=== PATIENT | male | born 1955 | race Caucasian/White ===

== ENCOUNTER 2021-01-23 14:00 | Inpatient (IN) | payer MEDICARE, MEDICAID ==
[~2021-01-23] VITALS: Ht 162.6 cm; Wt 68.2 kg
[2021-01-23] MEDS ORDERED: SODIUM CHLORIDE 0.9% 1,000 ML IV ONE (14:45)
[2021-01-23 15:25] LABS: HEMATOCRIT. 37.3 % (42.0-52.0); HEMOGLOBIN. 13.2 g/dL (14.0-18.0); MEAN CORPUSCULAR HEMOGLOBIN 30.6 pg (28.0-32.0); MEAN CORPUSCULAR VOLUME 86.4 fL (80.0-94.0); MEAN PLATELET VOLUME 8.6 fl (7.4-10.4); PLATELET 219 x1000/uL (130-400); RED BLOOD CELL COUNT 4.31 mill/uL (4.7-6.1)
[2021-01-23 15:32] LABS: CHLORIDE 102 mEq/L (98-107)
[2021-01-23 15:35] LABS: ETHANOL BLOOD < 10 mg/dL; PROTHROMBIN TIME 10.7 sec (9.6-11.0)
[2021-01-23 15:48] LABS: PLATELET ESTIMATE NORMAL
[2021-01-23] MEDS ORDERED: AZITHROMYCIN 500 MG in DEXT 5% WATER 250 ML IV SCH (17:00)
[2021-01-23 17:13] LABS: CLARITY URINE CLEAR (CLEAR); COLOR URINE DARK YELLOW (YELLOW); KETONES URINE TRACE (NEGATIVE); LEUKOCYTE ESTERASE URINE TRACE (NEGATIVE); NITRITE URINE NEGATIVE (NEGATIVE); OCCULT BLOOD URINE NEGATIVE (NEGATIVE); PROTEIN URINE TRACE (NEGATIVE); SPECIFIC GRAVITY URINE 1.022 (1.005-1.030)
[2021-01-23] MEDS ORDERED: CEFTRIAXONE 1 G PREMIX 50 ML IV ONE (17:15)
[2021-01-23 17:22] LABS: *AMPHETAMINES SCREEN URINE NEGATIVE (NEGATIVE); *BARBITURATES SCREEN URINE NEGATIVE (NEGATIVE); *BENZODIAZEPINES SCREEN URINE NEGATIVE (NEGATIVE); *COCAINE SCREEN URINE NEGATIVE (NEGATIVE)
[2021-01-23 17:23] LABS: CANNABINOID URINE SCREEN NEGATIVE (NEGATIVE); METHADONE URINE SCREEN NEGATIVE (NEGATIVE); OPIATES URINE SCREEN NEGATIVE (NEGATIVE); PHENCYCLIDINE URINE SCREEN NEGATIVE (NEGATIVE)
[2021-01-23] MEDS ORDERED: NITROGLYCERIN 0.4MG TABLET SL SL PRN (20:00)
[2021-01-23] MEDS ORDERED: ZOLPIDEM TARTRATE 5MG TABLET PO PRN (20:00)
[2021-01-23] MEDS ORDERED: GUAIFENESIN 200MG/10ML SUGAR FREE UDC PO PRN (20:00)
[2021-01-23] MEDS ORDERED: KETOROLAC 15MG/ML VIAL IV PRN (20:00)
[2021-01-23] MEDS ORDERED: IPRATROPIUM/ALBUTEROL 0.5-3(2.5)MG/3ML NEB NEB PRN (20:00)
[2021-01-23] MEDS ORDERED: DOCUSATE SODIUM 100MG CAPSULE PO PRN (20:00)
[2021-01-23] MEDS ORDERED: CLONIDINE 0.1MG TABLET PO PRN (20:00)
[2021-01-23] MEDS ORDERED: MAGNESIUM/ALUMINUM HYDROXIDE/SIMETHICONE 30ML UDC PO PRN (20:00)
[2021-01-23] MEDS ORDERED: ONDANSETRON HCL 4MG/2ML INJ IV PRN (20:00)
[2021-01-23 20:41] LABS: FOLIC ACID (FOLATE) SERUM 8.2 ng/mL (>5.38)
[2021-01-23] MEDS: FAMOTIDINE 20MG TABLET PO SCH (21:00)
[2021-01-23] MEDS: ASCORBIC ACID 500 MG TABLET PO SCH (21:00)
[2021-01-23] MEDS: ENOXAPARIN 40MG/0.4ML SYR SUBCUT SCH (21:00)
[2021-01-23 22:58] LABS: CREATINE KINASE MB FRACTION 38.4 ng/mL (0.5-3.6)
[2021-01-23 23:09] LABS: CREATINE KINASE 2401 IU/L (39-308)
[2021-01-24] VITALS: BP_SYST 124; BP_SYST 126; BP_DIAS 61; BP_DIAS 72
[2021-01-24] MEDS ORDERED: GABA-529 PO (01:06)
[2021-01-24] MEDS ORDERED: DONE10TA36 MT (01:06)
[2021-01-24] MEDS ORDERED: LABE200T9 PO (01:06)
[2021-01-24] MEDS ORDERED: HYDR100T26 PO (01:06)
[2021-01-24] MEDS ORDERED: LANS30CA55 PO (01:06)
[2021-01-24] MEDS ORDERED: LOSA50TA41 MT (01:06)
[2021-01-24 04:00] VITALS: BP 134/65
[2021-01-24 07:04] LABS: HEMATOCRIT. 37.1 % (42.0-52.0); MEAN CORPUSCULAR HEMOGLOBIN 30.6 pg (28.0-32.0); MEAN CORPUSCULAR VOLUME 87.5 fL (80.0-94.0); PLATELET 199 x1000/uL (130-400); RED BLOOD CELL COUNT 4.24 mill/uL (4.7-6.1); RED CELL DISTRIBUTION WIDTH 14.3 % (11.6-14.6)
[2021-01-24 07:34] LABS: CHLORIDE 102 mEq/L (98-107)
[2021-01-24 07:46] LABS: PHOSPHORUS 2.8 mg/dL (2.5-4.9)
[2021-01-24 07:56] LABS: CREATINE KINASE MB FRACTION 26.3 ng/mL (0.5-3.6)
[2021-01-24 08:04] LABS: CREATINE KINASE 2665 IU/L (39-308)
[2021-01-24 08:20] VITALS: BP 133/68
[2021-01-24] MEDS: CHOLECALCIFEROL (D3) 1000 UNIT TABLET PO SCH (09:24)
[2021-01-24] MEDS: FAMOTIDINE 20MG TABLET PO SCH ×2 (09:24→20:23)
[2021-01-24] MEDS: CLOPIDOGREL 75MG TABLET PO SCH (09:24)
[2021-01-24] MEDS: ASCORBIC ACID 500 MG TABLET PO SCH ×2 (09:25→20:23)
[2021-01-24] MEDS: ZINC SULFATE 220 MG ( 50 ) CAPSULE PO SCH (09:25)
[2021-01-24] MEDS: ACETAMINOPHEN 325MG TABLET PO PRN ×2 (09:25→17:12)
[2021-01-24 12:00] VITALS: BP 126/64
[2021-01-24 13:21] LABS: PLATELET ESTIMATE NORMAL
[2021-01-24 16:20] VITALS: BP 152/80
[2021-01-24] MEDS: AZITHROMYCIN 500 MG in DEXT 5% WATER 250 ML IV SCH (17:13)
[2021-01-24] MEDS: CEFTRIAXONE 1,000 MG in DEXTROSE 5% WATER 50 ML IV SCH (17:13)
[2021-01-24] MEDS ORDERED: AZITHROMYCIN 500 MG in DEXT 5% WATER 250 ML IV SCH (18:00)
[2021-01-24] MEDS ORDERED: CEFTRIAXONE 1,000 MG in DEXTROSE 5% WATER 50 ML IV SCH (18:00)
[2021-01-24 20:00] VITALS: BP 137/74
[2021-01-24] MEDS: ENOXAPARIN 40MG/0.4ML SYR SUBCUT SCH ×2 (20:25→21:00)
[2021-01-25] VITALS: BP 147/78
[2021-01-25] MEDS: ACETAMINOPHEN 325MG TABLET PO PRN ×2 (00:04→21:08)
[2021-01-25 04:00] VITALS: BP 118/70
[2021-01-25 08:00] VITALS: BP 119/53
[2021-01-25] MEDS: ZINC SULFATE 220 MG ( 50 ) CAPSULE PO SCH (09:17)
[2021-01-25] MEDS: ASCORBIC ACID 500 MG TABLET PO SCH ×2 (09:17→21:08)
[2021-01-25] MEDS: CLOPIDOGREL 75MG TABLET PO SCH (09:17)
[2021-01-25] MEDS: FAMOTIDINE 20MG TABLET PO SCH ×2 (09:17→21:08)
[2021-01-25] MEDS: CHOLECALCIFEROL (D3) 1000 UNIT TABLET PO SCH (09:17)
[2021-01-25] MEDS ORDERED: VANCOMYCIN 1500MG in DEXTROSE 5% WATER 250ML IV SCH (10:00)
[2021-01-25 12:00] VITALS: BP 146/85
[2021-01-25 16:00] VITALS: BP 151/81
[2021-01-25] MEDS: CEFTRIAXONE 1,000 MG in DEXTROSE 5% WATER 50 ML IV SCH (18:35)
[2021-01-25 20:00] VITALS: BP 140/80
[2021-01-25] MEDS: AZITHROMYCIN 500 MG in DEXT 5% WATER 250 ML IV SCH (21:08)
[2021-01-25] MEDS ORDERED: VANCOMYCIN 1250MG in DEXTROSE 5% WATER 250ML IV SCH (22:00)
[2021-01-25] MEDS: ENOXAPARIN 40MG/0.4ML SYR SUBCUT SCH (23:17)
[2021-01-25] MEDS: VANCOMYCIN 1 G PREMIX 200 ML IV SCH (23:44)
[2021-01-26] VITALS: BP 97/51
[2021-01-26 04:00] VITALS: BP 113/65
[2021-01-26 08:00] VITALS: BP 121/74
[2021-01-26] MEDS: ASCORBIC ACID 500 MG TABLET PO SCH ×2 (08:20→21:58)
[2021-01-26] MEDS: ZINC SULFATE 220 MG ( 50 ) CAPSULE PO SCH (08:20)
[2021-01-26] MEDS: VANCOMYCIN 1 G PREMIX 200 ML IV SCH ×2 (08:21→21:59)
[2021-01-26] MEDS: CHOLECALCIFEROL (D3) 1000 UNIT TABLET PO SCH (08:21)
[2021-01-26] MEDS: FAMOTIDINE 20MG TABLET PO SCH ×2 (08:21→21:58)
[2021-01-26] MEDS: CLOPIDOGREL 75MG TABLET PO SCH (08:21)
[2021-01-26] MEDS ORDERED: LACTULOSE 20G/30ML UDC PO ONE (09:15)
[2021-01-26 12:00] VITALS: BP 114/70
[2021-01-26] MEDS ORDERED: NA PHOS,M-B/NA PHOS,DI-BA ENEMA 118ML PR ONE (14:15)
[2021-01-26 16:00] VITALS: BP 119/66
[2021-01-26] MEDS: CEFTRIAXONE 1,000 MG in DEXTROSE 5% WATER 50 ML IV SCH (17:00)
[2021-01-26] MEDS: AZITHROMYCIN 500 MG in DEXT 5% WATER 250 ML IV SCH (17:01)
[2021-01-26 20:00] VITALS: BP 114/67
[2021-01-26] MEDS: ENOXAPARIN 40MG/0.4ML SYR SUBCUT SCH (21:58)
[2021-01-27] VITALS: BP 127/70
[2021-01-27 04:00] VITALS: BP 117/70
[2021-01-27 06:17] LABS: BASOPHILS % 0.5 % (0.0-2.0); HEMOGLOBIN. 11.6 g/dL (14.0-18.0); LYMPHOCYTES % 11.6 % (20.0-50.0); MEAN CORPUSCULAR HEMOGLOBIN 30.5 pg (28.0-32.0); MONOCYTES % 14.8 % (2.0-8.0); NEUTROPHILS % 70.1 % (40.0-76.0); PLATELET 196 x1000/uL (130-400); RED CELL DISTRIBUTION WIDTH 14.1 % (11.6-14.6)
[2021-01-27 07:26] LABS: CHLORIDE 102 mEq/L (98-107)
[2021-01-27 08:00] VITALS: BP 122/74
[2021-01-27] MEDS: CHOLECALCIFEROL (D3) 1000 UNIT TABLET PO SCH (08:35)
[2021-01-27] MEDS: ZINC SULFATE 220 MG ( 50 ) CAPSULE PO SCH (08:35)
[2021-01-27] MEDS: FAMOTIDINE 20MG TABLET PO SCH ×2 (08:35→20:26)
[2021-01-27] MEDS: VANCOMYCIN 1 G PREMIX 200 ML IV SCH (08:35)
[2021-01-27] MEDS: CLOPIDOGREL 75MG TABLET PO SCH (08:35)
[2021-01-27] MEDS: ASCORBIC ACID 500 MG TABLET PO SCH ×2 (08:36→20:26)
[2021-01-27 12:19] VITALS: BP 119/76
[2021-01-27 16:00] VITALS: BP 122/77
[2021-01-27] MEDS: ACETAMINOPHEN 325MG TABLET PO PRN (17:29)
[2021-01-27] MEDS ORDERED: AZITHROMYCIN 500 MG TABLET PO SCH (18:00)
[2021-01-27 20:00] VITALS: BP 117/69
[2021-01-27] MEDS: ENOXAPARIN 40MG/0.4ML SYR SUBCUT SCH (20:27)
[2021-01-27] MEDS: VANCOMYCIN 750 MG PREMIX 150 ML IV SCH (21:11)
[2021-01-28] VITALS: BP 139/62
[2021-01-28 04:00] VITALS: BP 124/73
[2021-01-28 08:00] VITALS: BP 142/77
[2021-01-28] MEDS: FAMOTIDINE 20MG TABLET PO SCH ×2 (09:19→22:49)
[2021-01-28] MEDS: VANCOMYCIN 750 MG PREMIX 150 ML IV SCH ×2 (09:21→22:55)
[2021-01-28] MEDS: ZINC SULFATE 220 MG ( 50 ) CAPSULE PO SCH (09:21)
[2021-01-28] MEDS: CLOPIDOGREL 75MG TABLET PO SCH (09:21)
[2021-01-28] MEDS: ASCORBIC ACID 500 MG TABLET PO SCH ×2 (09:21→22:49)
[2021-01-28] MEDS: CHOLECALCIFEROL (D3) 1000 UNIT TABLET PO SCH (09:21)
[2021-01-28 12:00] VITALS: BP 144/72
[2021-01-28 16:00] VITALS: BP 142/76
[2021-01-28] MEDS: GENTAMICIN SULFATE IV SCH (17:03)
[2021-01-28] MEDS: SODIUM CHLORIDE 0.9% IV SCH (17:03)
[2021-01-28 20:00] VITALS: BP 142/77
[2021-01-28] MEDS: ENOXAPARIN 40MG/0.4ML SYR SUBCUT SCH (22:49)
[2021-01-29] VITALS (7 sets, daily range): BP systolic 131–145; BP diastolic 68–97
[2021-01-29] MEDS: GENTAMICIN SULFATE IV SCH ×3 (00:57→16:44)
[2021-01-29] MEDS: SODIUM CHLORIDE 0.9% IV SCH ×3 (00:57→16:44)
[2021-01-29 03:14] LABS: CHLORIDE 104 mEq/L (98-107)
[2021-01-29] MEDS: CLOPIDOGREL 75MG TABLET PO SCH (09:17)
[2021-01-29] MEDS: ASCORBIC ACID 500 MG TABLET PO SCH ×2 (09:17→22:15)
[2021-01-29] MEDS: ZINC SULFATE 220 MG ( 50 ) CAPSULE PO SCH (09:17)
[2021-01-29] MEDS: CHOLECALCIFEROL (D3) 1000 UNIT TABLET PO SCH (09:17)
[2021-01-29] MEDS: FAMOTIDINE 20MG TABLET PO SCH ×2 (09:17→22:15)
[2021-01-29] MEDS ORDERED: FENTANYL CITRATE/PF 50MCG/ML 2ML VIAL ONE (09:42)
[2021-01-29] MEDS ORDERED: MIDAZOLAM HCL 2 MG/2 ML VIAL ONE (09:42)
[2021-01-29] MEDS ORDERED: LIDOCAINE HCL 2% JELLY 5ML ONE (09:42)
[2021-01-29] MEDS ORDERED: TETRACAINE/BENZOCAINE/BUTAMBEN 20 GM SPRAY MM ONE (09:49)
[2021-01-29] MEDS: VANCOMYCIN 750 MG PREMIX 150 ML IV SCH ×2 (11:18→22:16)
[2021-01-29] MEDS ORDERED: KCL 20MEQ/100ML PREMIX 100 ML IV NR (12:00)
[2021-01-29] MEDS: ENOXAPARIN 40MG/0.4ML SYR SUBCUT SCH (22:16)
[2021-01-30 00:03] VITALS: BP 128/74
[2021-01-30] MEDS: GENTAMICIN SULFATE IV SCH ×3 (00:26→16:19)
[2021-01-30] MEDS: SODIUM CHLORIDE 0.9% IV SCH ×3 (00:26→16:19)
[2021-01-30 04:00] VITALS: BP 130/68
[2021-01-30 06:22] LABS: CHLORIDE 105 mEq/L (98-107)
[2021-01-30 06:35] LABS: GENTAMICIN RANDOM 1.7 ug/mL
[2021-01-30 08:00] VITALS: BP 146/75
[2021-01-30] MEDS: FAMOTIDINE 20MG TABLET PO SCH (08:45)
[2021-01-30] MEDS: CLOPIDOGREL 75MG TABLET PO SCH (08:45)
[2021-01-30] MEDS: ASCORBIC ACID 500 MG TABLET PO SCH (08:45)
[2021-01-30] MEDS: CHOLECALCIFEROL (D3) 1000 UNIT TABLET PO SCH (08:45)
[2021-01-30] MEDS: ZINC SULFATE 220 MG ( 50 ) CAPSULE PO SCH (08:45)
[2021-01-30] MEDS: VANCOMYCIN 750 MG PREMIX 150 ML IV SCH (10:14)
[2021-01-30 12:00] VITALS: BP 146/75
[2021-01-30] MEDS ORDERED: LIDOCAINE HCL 1% 20ML VIAL (Pyxis) INJ ONE (12:35)
[2021-01-30 14:13] VITALS: BP 130/78
[2021-01-30 16:00] VITALS: BP 136/84
== END 2021-01-30 18:20 | DRG 871 ==
LOC: ER 14:00 → 5WST 17:53 → EDBEDREQSVC 17:58 → EDBEDREQ 17:58 → EDBEDREQTM 17:58 → SUPCPDRO 19:53 → EDBEDREQSVC 20:29 → EDBEDREQTM 20:29 → ENRESERV 23:36
PROVIDERS: ADMIT Internal Medicine; ATTEND Internal Medicine
PROC: 02HV33Z Insertion of Infusion Device into Superior Vena Cava, Percutaneous Approach (ICD-10-PCS; principal; 2021-01-23)
PROC: B548ZZA Ultrasonography of Superior Vena Cava, Guidance (ICD-10-PCS; 2021-01-23)
PROC: B5181ZA Fluoroscopy of Superior Vena Cava using Low Osmolar Contrast, Guidance (ICD-10-PCS; 2021-01-23)
DX: A41.81 Sepsis due to Enterococcus (principal); J18.9 Pneumonia, unspecified organism; G92 Toxic encephalopathy; E87.1 Hypo-osmolality and hyponatremia; N39.0 Urinary tract infection, site not specified; M62.82 Rhabdomyolysis; J96.10 Chronic respiratory failure, unspecified whether with hypoxia or hypercapnia; I38 Endocarditis, valve unspecified; I31.3 Pericardial effusion (noninflammatory); F16.10 Hallucinogen abuse, uncomplicated; I10 Essential (primary) hypertension; D64.9 Anemia, unspecified; Z20.822 Contact with and (suspected) exposure to COVID-19; Z86.73 Personal history of transient ischemic attack (TIA), and cerebral infarction without residual deficits; Z99.3 Dependence on wheelchair
CPT/HCPCS: 36415; 36573; 70551; 71045; 80048; 80053; 80061; 80170; 80202; 80305; 80320; 81003; 82550; 82553; 82607; 82746; 83036; 83540; 83550; 83735; 84100; 84145; 84484; 85025; 87077; 87186; 87426; 93005; 93306; 93312; 93970; 97162; 99285; C1725; C1893; J0456; J0696; J1580; J1650; J2250; J3010; J3370; J3480; J3490; J7030; J7060; G0480